=== PATIENT | male | born 1960 | race Caucasian/White ===

== ENCOUNTER → 2018-01-23 | Outpatient (REF) | payer BC ==
[2018-01-30 10:16] LABS: ASPERGILLUS FUMIGATUS AB Negative (Negative); AUREOBASIDIUM PULLULANS Negative (Negative); MICROPOLYSPORA FAENI AB Negative (Negative); PIGEON SERUM AB Negative (Negative); THERMOACTINOMYCES SACCHARI Negative (Negative); THERMOACTINOMYCES VULGARIS Negative (Negative)
== END ==
LOC: M LAB REF 13:07
DX: J45.40 Moderate persistent asthma, uncomplicated (principal)
CPT/HCPCS: 86606

== ENCOUNTER → 2018-03-17 | Outpatient (CLI) | payer BC ==
[2018-03-17 14:40] LABS: INR 0.96; PROTHROMBIN TIME 12.9 SECONDS (12.1-14.4)
[2018-03-17 14:41] LABS: PARTIAL THROMBOPLASTIN TIME 26.7 SECONDS (25.4-37.6)
[2018-03-17 14:58] LABS: ALBUMIN 3.9 GM/DL (3.2-5.2); ALBUMIN/GLOBULIN RATIO 1.08 (1.00-1.93); ALKALINE PHOSPHATASE 74 U/L (45-117); ALT/SGPT 28 U/L (12-78); AST/SGOT 17 U/L (7-37); BILIRUBIN,DIRECT < 0.1 MG/DL (0.0-0.2); BILIRUBIN,TOTAL 0.5 MG/DL (0.2-1.0); TOTAL PROTEIN 7.5 GM/DL (6.4-8.2)
[2018-03-17 15:06] LABS: ALPHA FETOPROTEIN TUMOR QUANT 1.3 NG/ML (<8.1)
[2018-03-18 10:16] LABS: HEPATITIS B SURFACE ANTIBODY NEGATIVE (POSITIVE)
[2018-03-18 10:26] LABS: HEPATITIS B SURFACE ANTIGEN NEGATIVE (NEGATIVE)
[2018-03-18 10:55] LABS: HEPATITIS C VIRUS ABY INDEX 0.5 INDEX (<0.8)
[2018-03-19 00:07] LABS: ANTI-SMOOTH MUSCLE ANTIBODY 18 Units (0-19)
[2018-03-19 00:07] LABS: ANTI-MITOCHONDRIAL ANTIBODY 4.9 Units (0.0-20.0); ANTINUCLEAR ANTIBODIES DIRECT Negative (Negative); HEPATITIS A IgG TOTAL Negative (Negative)
== END ==
LOC: M LAB 13:27
DX: R93.3 Abnormal findings on diagnostic imaging of other parts of digestive tract (principal)
CPT/HCPCS: 80076

== ENCOUNTER → 2018-03-19 | Outpatient (CLI) | payer BC | LOC: M RAD 06:56 | DX: R91.8 Other nonspecific abnormal finding of lung field (principal) | CPT/HCPCS: 76700 ==

== ENCOUNTER 2018-03-31 08:33 | Day surgery (SDC) | payer BC ==
[2018-03-31] MEDS: NS 1,000 ML IV (09:01)
[2018-03-31] MEDS ORDERED: LIDOCAINE 2% INJ 100 MG/5 ML SDV (FOR ANES.) As Ordered (09:01)
[2018-03-31] MEDS ORDERED: PROPOFOL 200 MG/20 ML VIAL As Ordered ×2 (09:01→09:03)
[2018-03-31] MEDS ORDERED: fentaNYL 100 MCG/2 ML INJECTION (J3010) As Ordered (09:04)
== END 2018-03-31 11:15 | disposition home or self-care (01) ==
LOC: M OPP 11:15
DX: Z12.11 Encounter for screening for malignant neoplasm of colon (principal); D12.7 Benign neoplasm of rectosigmoid junction; K64.8 Other hemorrhoids; R13.10 Dysphagia, unspecified; K21.0 Gastro-esophageal reflux disease with esophagitis; K22.8 Other specified diseases of esophagus; K29.70 Gastritis, unspecified, without bleeding
CPT/HCPCS: 45385

== ENCOUNTER → 2022-04-16 | Outpatient (CLI) | payer BC ==
[~2022-04-16] MED LIST: ASPI81TA86 PO; BREO1INH3 INH; HYDR12.55 PO; PANT40TA29 PO; PROHANCE 279.3MG/ML 15ML VIAL As Ordered ONE; PROHANCE 279.3MG/ML 5ML VIAL As Ordered ONE
== END ==
LOC: M RAD 08:56
PROVIDERS: ATTEND Specialist
DX: R97.20 Elevated prostate specific antigen [PSA] (principal); R93.89 Abnormal findings on diagnostic imaging of other specified body structures
CPT/HCPCS: 72197; A9576

== ENCOUNTER → 2023-09-05 | Day surgery (SDC) | payer BC ==
[~2023-09-05] VITALS: Ht 170.2 cm; Wt 92.1 kg
[~2023-09-05] MED LIST changes: +BREO1INH; +ECOT81TA5 PO; +HYDR12CA PO; +LIDOCAINE 2% 100MG/5ML SDV (FOR ANES.) As Ordered ONE; +MELO15TA28 PO; -PROHANCE 279.3MG/ML 15ML VIAL As Ordered ONE; -PROHANCE 279.3MG/ML 5ML VIAL As Ordered ONE; +TAMS1CAP17 PO; +fentaNYL 100 MCG/2 ML INJECTION As Ordered ONE; +propofoL 200 MG/20 ML VIAL As Ordered ONE
[2023-09-05] MEDS: NS 1,000 ML IV ONE (11:47)
[2023-09-05 13:55] VITALS: TEMP 98.1
[2023-09-05 14:21] VITALS: BP 131/67; O2SAT 98
== END | disposition home or self-care (01) ==
LOC: M OPP 11:20
PROVIDERS: ATTEND Internal Medicine Gastroenterology
DX: Z12.11 Encounter for screening for malignant neoplasm of colon (principal); Z86.010 Personal history of colon polyps; D12.6 Benign neoplasm of colon, unspecified; K64.8 Other hemorrhoids; K64.4 Residual hemorrhoidal skin tags; K22.10 Ulcer of esophagus without bleeding; I10 Essential (primary) hypertension; J45.909 Unspecified asthma, uncomplicated; Z79.1 Long term (current) use of non-steroidal anti-inflammatories (NSAID); Z79.51 Long term (current) use of inhaled steroids; Z79.83 Long term (current) use of bisphosphonates; Z79.899 Other long term (current) drug therapy
CPT/HCPCS: 43239; 45385; 88305; J3010